=== PATIENT | male | born 1945 | race Caucasian/White ===

== ENCOUNTER → 2018-08-18 | Outpatient (CLI) | payer MEDICARE, OTHER | LOC: M WUC 17:23 | DX: M25.541 Pain in joints of right hand (principal) | CPT/HCPCS: 73130 ==

== ENCOUNTER → 2019-02-25 | Outpatient (REF) | payer MEDICARE, OTHER ==
[2019-02-28 00:08] LABS: ANA (HEP2) Negative (.)
== END ==
LOC: M SFHCPLAZ 14:26
PROVIDERS: ATTEND Internal Medicine Rheumatology
DX: R76.8 Other specified abnormal immunological findings in serum (principal)
CPT/HCPCS: 36415; 86038; G0463

== ENCOUNTER → 2021-06-26 | Outpatient (CLI) | payer MEDICARE, OTHER | LOC: M RAD 09:05 | PROVIDERS: ATTEND Family Medicine | DX: I25.10 Atherosclerotic heart disease of native coronary artery without angina pectoris (principal); I70.223 Atherosclerosis of native arteries of extremities with rest pain, bilateral legs; Z53.9 Procedure and treatment not carried out, unspecified reason ==

== ENCOUNTER → 2021-07-13 | Outpatient (CLI) | payer MEDICARE, OTHER ==
--- NOTE | 2021-07-17 12:58 | REPVR ---
PROCEDURE INFORMATION: Exam: MRA Pelvis With Or Without Contrast Exam date and time: 07/13/2021 6:45 PM Age: 76 years old Clinical indication: Other: [facility] [place] [facility] w rest pain, bilat TECHNIQUE: Imaging protocol: Magnetic resonance angiography of the pelvis with or without contrast. COMPARISON: No relevant prior studies available. FINDINGS: Soft tissues: There is a mass possibly a sebaceous cyst left posterior soft tissues measuring 25 x 18 mm. Other findings: The inferior mesenteric vein is seen as patent without definite stenosis at its origin. IMPRESSION: 1. No acute abnormality of the distal aorta and iliac veins. 2. Possible left posterior sebaceous cyst. PROCEDURE INFORMATION: Exam: MRA/MRV EXTREMITY LOWER WO OR W, right Exam date and time: 07/13/2021 6:45 PM Age: 76 years old Clinical indication: Other: [facility] [place] [facility] w rest pain, bilat TECHNIQUE: Imaging protocol: MRA/MRV EXTREMITY LOWER WO OR W COMPARISON: No relevant prior studies available. FINDINGS: There is a questionable 70-90% stenosis noted involving the origin of the left superficial femoral artery. Image 502/45. The common femoral artery is unremarkable. There is a questionable 70+ % stenosis involving the distal right superficial femoral artery at Siva's canal specifically image 503/51. There is an area of possible 50-70% stenosis of the popliteal artery at its origin with no signal noted in the popliteal artery posterior to the femur specifically image 503/11 through 9. There is three-vessel runoff to the ankle with all 3 calf vessels appearing unremarkable. IMPRESSION: 1. Possible severe stenosis involving the origin the right superficial femoral artery, the distal superficial femoral artery. 2. Possible moderate stenosis involving the popliteal artery its origin. There is an area of no signal noted within the popliteal artery more inferiorly. 3. Consider contrast scanning. PROCEDURE INFORMATION: Exam: MRA/MRV EXTREMITY LOWER WO OR W, left Exam date and time: 07/13/2021 6:45 PM Age: 76 years old Clinical indication: Other: [facility] [place] [facility] w rest pain, bilat TECHNIQUE: Imaging protocol: MRA/MRV EXTREMITY LOWER WO OR W COMPARISON: No relevant prior studies available. FINDINGS: There is an area of questionable 70+ % stenosis involving the left common femoral artery image 502/53. There is a questionable 70+ % stenosis involving the proximal left superficial femoral artery image 502/29. There is a possible 50-70% stenosis involving the distal superficial femoral artery at Siva's canal image 503/29. There is an area of signal loss involving the popliteal artery images 503/23 through 12. There is three-vessel runoff to the left ankle. IMPRESSION: 1. Questionable severe stenosis involving the left common femoral artery and superficial femoral artery. 2. Questionable occlusion versus artifact popliteal artery. 3. Consider contrast scanning. Electronically signed by: Jose Juan Colbert On 07/17/2021 12:58:24 PM
== END ==
LOC: M RAD 16:39
PROVIDERS: ATTEND Family Medicine
DX: I70.223 Atherosclerosis of native arteries of extremities with rest pain, bilateral legs (principal); M79.89 Other specified soft tissue disorders

== ENCOUNTER → 2021-09-14 | Outpatient (CLI) | payer MEDICARE, OTHER ==
--- NOTE | 2021-09-14 09:01 | REP ---
INDICATION: SMOKER. COMPARISON: None. TECHNIQUE: Standard low-dose screening lung CT technique protocol. FINDINGS: Some minor curvilinear fibroatelectatic change in the right lower lobe anteriorly near the major fissure. There also some minor fibro atelectatic changes in the inferior lingular segment at the anterior left lung base adjacent to the left heart border. Pleural effusion, pulmonary nodules, parenchymal mass or calcified pleural plaque. Healed sternotomy is noted. Bones without any definite acute finding. IMPRESSION: 1. Lung RADS category 1, negative. No suspicious nodules or other findings. Patients with this category of exam have less than 1% chance of malignancy at the time of the examination. For patients at high risk of malignancy, annual low-dose screening CT recommended. <Electronically signed by Jimmie Wood > 09/14/21 [id number]
== END ==
LOC: M RAD 08:25
PROVIDERS: ATTEND Family Medicine
DX: Z12.2 Encounter for screening for malignant neoplasm of respiratory organs (principal); I11.9 Hypertensive heart disease without heart failure; F17.210 Nicotine dependence, cigarettes, uncomplicated; J84.10 Pulmonary fibrosis, unspecified

== ENCOUNTER → 2022-12-11 | Outpatient (CLI) | payer MEDICARE, OTHER | LOC: M RAD 09:32 | PROVIDERS: ATTEND Family Medicine | DX: Z12.2 Encounter for screening for malignant neoplasm of respiratory organs (principal); F17.211 Nicotine dependence, cigarettes, in remission; I70.0 Atherosclerosis of aorta; I25.10 Atherosclerotic heart disease of native coronary artery without angina pectoris; Z95.1 Presence of aortocoronary bypass graft; K44.9 Diaphragmatic hernia without obstruction or gangrene; M48.14 Ankylosing hyperostosis [Forestier], thoracic region; J43.2 Centrilobular emphysema ==

== ENCOUNTER → 2025-02-08 | Outpatient (CLI) | payer MEDICARE, OTHER ==
[~2025-02-08] MED LIST: PROHANCE 279.3MG/ML 15ML VIAL As Ordered ONE; PROHANCE 279.3MG/ML 5ML VIAL As Ordered ONE
== END ==
LOC: M RAD 10:45
PROVIDERS: ATTEND Physician Assistant
DX: Z48.812 Encounter for surgical aftercare following surgery on the circulatory system (principal); I65.21 Occlusion and stenosis of right carotid artery
CPT/HCPCS: 70549; A9576